=== PATIENT | female | born 1960 | race African-American/Black ===

== ENCOUNTER 2017-03-28 16:34 | Emergency (ER) | payer MEDICARE, OTHER ==
[~2017-03-28] VITALS: Ht 152.4 cm; Wt 60.0 kg
[2017-03-28 16:34] VITALS: Ht 152.4 cm; Wt 60.0 kg
[2017-03-28 17:30] LABS: BASOPHILS % 0.8 % (0.0-2.0); EOSINOPHILS # 0.1 10^3/ul (0.0-0.5); EOSINOPHILS % 1.6 % (0.0-7.0); HEMATOCRIT 37.3 % (37.0-47.0); HEMOGLOBIN 12.9 g/dl (12.0-16.0); LYMPHOCYTES # 2.5 10^3/ul (0.8-2.9); LYMPHOCYTES % 49.6 % (15.0-51.0); MEAN CORPUSCULAR HEMOGLOBIN 33.7 pg (29.0-33.0); MEAN CORPUSCULAR HGB CONC 34.6 g/dl (32.0-37.0); MEAN CORPUSCULAR VOLUME 97.4 fl (82.0-101.0); MEAN PLATELET VOLUME 10.8 fl (7.4-10.4); MONOCYTE # 0.5 10^3/ul (0.3-0.9); PLATELET COUNT 129 10^3/UL (140-415); RED BLOOD COUNT 3.83 10^6/ul (4.20-5.40); RED CELL DISTRIBUTION WIDTH 13.2 % (11.5-14.5)
[2017-03-28 17:50] LABS: ALANINE AMINOTRANSFERASE 51 IU/L (13-69); ALBUMIN 4.3 g/dl (3.3-4.9); ALBUMIN/GLOBULIN RATIO 1.07; ALKALINE PHOSPHATASE 111 IU/L (42-121); ANION GAP 18 (8-16); ASPARTATE AMINO TRANSFERASE 85 IU/L (15-46); BILIRUBIN,INDIRECT 0.2 mg/dl (0-1.1); BILIRUBIN,TOTAL 0.2 mg/dl (0.2-1.3); BLOOD UREA NITROGEN 9 mg/dl (7-20); CALCIUM 9.2 mg/dl (8.4-10.2); CARBON DIOXIDE 19 mmol/L (21-31); CHLORIDE 113 mmol/L (97-110); CREATININE 0.67 mg/dl (0.44-1.00); GLUCOSE 116 mg/dl (70-220); POTASSIUM 3.6 mmol/L (3.5-5.1); SODIUM 146 mmol/L (135-144); TOTAL PROTEIN 8.3 g/dl (6.1-8.1)
[2017-03-28 17:56] LABS: ACETAMINOPHEN < 10.0 ug/ml (10.0-30.0); SALICYLATE < 1.0 mg/dl (5.0-30.0)
[2017-03-28] MEDS ORDERED: LORAZEPAM 2 MG INJ IM ONE (18:00)
[2017-03-28] MEDS ORDERED: CHLO25CA9 PO (19:43)
[2017-03-28 20:08] VITALS: BP 120/56; PULSE 78; RESP 18
--- NOTE | 2017-03-28 22:59 | ERD ---
ER Documentation Chief Complaint Date/Time DATE: 03/28/17 TIME: 22:56 Chief Complaint BIB RA FOR EVAL OF ETOH. HPI 56-year-old woman with history of alcoholism admits to drinking alcohol this weekend and wants detox. She states her primary care physician Dr. Walker off center in for admission. She denies blood per rectum or melena, no hemoptysis, no chest pain or shortness of breath, no vomiting or diarrhea. Patient denies suicidal homicidal ideation. ROS All systems reviewed and are negative except as per history of present illness. Medications Home Meds Active Scripts Chlordiazepoxide* (Chlordiazepoxide*) 25 Mg Capsule, 25 MG PO BID Y for CONTROL WITHDRAWAL SYMPTOMS, #10 CAP Prov:MAYITO MIRANDA MD 03/28/17 Allergies Allergies: Coded Allergies: No Known Drug Allergies (Verified Allergy, Unknown, 03/28/17) PMhx/Soc Alcohol abuse Medical and Surgical Hx: pt denies Medical Hx, pt denies Surgical Hx Hx Alcohol Use: No Hx Substance Use: No Hx Tobacco Use: No Smoking Status: Never smoker FmHx Family History: No diabetes Physical Exam Vitals Vital Signs Date Time Temp Pulse Resp B/P Pulse Ox O2 Delivery O2 Flow Rate FiO2 03/28/17 20:08 78 18 120/56 97 Room Air 03/28/17 16:34 98.2 70 18 144/85 100 Physical Exam GENERAL: Well-developed, well-nourished, appears intoxicated with alcohol on breath HEENT: Moist mucous membranes, pink conjunctiva, no cervical spine tenderness or step-off deformities, no goiter, no jaundice or icterus, extraocular movements intact without pain. No submandibular induration, and no pharyngeal erythema NEURO: Alert and oriented 3, cranial nerves II through XII intact bilaterally, pupils equal round reactive to light, no focal deficits or facial asymmetry, sensation intact distally Strength 5/5 in upper and lower extremities bilaterally CARDIAC: Regular rate and rhythm, no murmurs rubs or gallops LUNGS: Clear bilaterally no wheezing crackles or stridor ABDOMEN: Soft nontender, no guarding, no rigidity, no rebound, no psoas sign no obturator sign. Normoactive bowel sounds SKIN: Warm and dry to touch, no abrasions, contusions, or hematomas, no lacerations, no ecchymosis, no target lesions, and without ulcers EXTREMITIES: No clubbing cyanosis or edema, calves are bilaterally symmetrical, no Homans sign, no popliteal cord sign. Distal pulses equal and bilateral PSYCH: Normal affect without agitation or irritability Result Diagram: 03/28/17 1720 03/28/17 1720 Results 24 hrs Laboratory Tests Test 03/28/17 17:20 White Blood Count 5.010^3/ul Red Blood Count 3.8310^6/ul Hemoglobin 12.9g/dl Hematocrit 37.3% Mean Corpuscular Volume 97.4fl Mean Corpuscular Hemoglobin 33.7pg Mean Corpuscular Hemoglobin Concent 34.6g/dl Red Cell Distribution Width 13.2% Platelet Count 17015^3/UL Mean Platelet Volume 10.8fl Neutrophils % 38.0% Lymphocytes % 49.6% Monocytes % 10.0% Eosinophils % 1.6% Basophils % 0.8% Nucleated Red Blood Cells % 0.0/100WBC Neutrophils # (Manual) 1.910^3/ul Lymphocytes # 2.510^3/ul Monocytes # 0.510^3/ul Eosinophils # 0.110^3/ul Basophils # 0.010^3/ul Nucleated Red Blood Cells # 0.010^3/ul Sodium Level 146mmol/L Potassium Level 3.6mmol/L Chloride Level 113mmol/L Carbon Dioxide Level 19mmol/L Anion Gap 18 Blood Urea Nitrogen 9mg/dl Creatinine 0.67mg/dl Glucose Level 116mg/dl Calcium Level 9.2mg/dl Total Bilirubin 0.2mg/dl Direct Bilirubin 0.00mg/dl Indirect Bilirubin 0.2mg/dl Aspartate Amino Transf (AST/SGOT) 85IU/L Alanine Aminotransferase (ALT/SGPT) 51IU/L Alkaline Phosphatase 111IU/L Total Protein 8.3g/dl Albumin 4.3g/dl Globulin 4.00g/dl Albumin/Globulin Ratio 1.07 Salicylates Level < 1.0mg/dl Acetaminophen Level < 10.0ug/ml Ethyl Alcohol Level 346.0mg/dl Current Medications Medications (Trade) Dose Ordered Sig/Sai Route PRN Reason Start Time Stop Time Status Last Admin Dose Admin Lorazepam (Ativan) 1 mg ONCE ONCE IM 03/28/17 18:00 03/28/17 18:01 DC 03/28/17 17:51 Procedures/MDM I administered lorazepam 1 mg intramuscular injection. Alcohol level elevated at over 300, CBC and electrolytes are normal, liver function tests are normal. I spoke to the patient's PMD Dr. Manzanares regarding the patient's presentation and symptomatology he recommended outpatient management, we have no indication for admission at this time he will follow-up with her tomorrow and provide outpatient management and detox referral. Differential diagnoses considered, included but not limited to acute coronary syndrome, pulmonary embolism, aortic dissection, abdominal aortic aneurysm, sepsis, stroke, meningitis, encephalitis, pneumonia, appendicitis, cholecystitis , bowel obstruction, pyelonephritis, nephrolithiasis, cystitis, as well as metabolic, hematologic, and electrolyte abnormalities. As well as abscess, cellulitis, fractures, and dislocations. Patient feels much better at this time, and vital signs are normal, symptoms have improved. I did give strict instructions to return to the ED if symptoms continue or worsen, patient will otherwise follow-up with primary care physician. Patient understood instructions and agreed to plan. Disclaimer: Inadvertent spelling and grammatical errors are likely due to EHR/ dictation software use and do not reflect on the overall quality of patient care. Also, please note that the electronic time recorded on this note does not necessarily reflect the actual time of the patient encounter. Departure Diagnosis: Primary Impression: Alcoholic intoxication Complication of substance-induced condition: uncomplicated Qualified Code: F10.920 - Alcoholic intoxication without complication Condition: Good Patient Instructions: Alcohol Intoxication, Alcohol Abuse Referrals: JULIÁN KRISHNAN MD (PCP) MAYITO MIRANDA MD Mar 28, 2017 22:59
== END 2017-03-28 20:08 | disposition home or self-care (01) ==
LOC: E/R 16:34
DX: F10.920 Alcohol use, unspecified with intoxication, uncomplicated (principal)
CPT/HCPCS: 80053; 80306; 85025; 96372; 99284; J2060

== ENCOUNTER 2017-04-12 12:43 | Day surgery (SDC) | payer MEDICARE, OTHER ==
[~2017-04-12] VITALS: Ht 152.4 cm; Wt 69.7 kg
[~2017-04-12 12:43] MED LIST: CHLO25CA9 PO
[2017-04-12 12:59] VITALS: Ht 152.4 cm; Wt 69.7 kg
[2017-04-12 13:27] VITALS: BP 198/113; RESP 18
[2017-04-12] MEDS ORDERED: LIDOCAINE 2% (SDV) 5 ML INJ ONE (13:28)
[2017-04-12] MEDS ORDERED: PROPOFOL 60 ML ONE (13:28)
--- NOTE | 2017-04-12 14:04 | OPPN ---
Date/Time of Note Date/Time of Note DATE: 04/12/17 TIME: 13:55 Proc Note GI Procedure Date 04/12/17 Pre-procedure Diagnosis Screening Post-procedure Diagnosis Normal Exam, Marginal Prep Procedure Performed: Colonoscopy Surgeon see signature line Booking Agent none Anesthesia Type: MAC Anesthesiologist: LAKHWINDER NUR MD EBJung none Transfusion required none Biopsy 1: none Grafts/Implants none Complication(s) none Pt Condition post procedure: stable Disposition: other Indications: screening/surveillance Procedure Description After informed consent, the patient was placed in left lateral position and sedated per anesthesia. The Olympus video colonoscope was easily passed into the patient's rectum. The Olympus pediatric video colonoscope was passed into the sigmoid, descending, transverse, descending colon to the cecum. The appendiceal orifice and ileocecal valve were identified. These appeared normal. Within the right colon there was a large amount of adherent stool. This was lavaged as best could be accomplished. Only a fair preparation was noted in the right colon. No mucosal abnormalities were noted. The instrument slowly with the remainder of the ascending and transverse colon which was normal except for the limitation of the preparation. The instrument was slowly removed through the descending and sigmoid colon. The mucosa throughout appeared normal. In the rectum a turnaround procedure was performed which showed small internal hemorrhoids. The instrument was removed through the patient's rectum. The patient tolerated the procedure well. Complications: None Impression: normal colonoscopic examination given limitations of preparation Plan: Suggest follow-up examination in 1 year with more extensive preparation. Note the patient admitted to drinking coffee the morning of the procedure. FROILAN LUGO MD Apr 12, 2017 14:04
[2017-04-12 14:39] VITALS: BP 166/90; PULSE 88; RESP 18
== END 2017-04-12 17:50 | disposition home or self-care (01) ==
LOC: GIL 12:43
PROVIDERS: ATTEND Internal Medicine Gastroenterology
DX: Z12.11 Encounter for screening for malignant neoplasm of colon (principal)